=== PATIENT | female | born 1935 | race Caucasian/White ===

== ENCOUNTER → 2018-07-14 17:09 | Outpatient (REF) | payer MEDICARE, SELFPAY ==
[2018-07-14 17:39] LABS: Blood Urea Nitrogen 9 mg/dL (7-17); Carbon Dioxide 33 mmol/L (22-32); Chloride 87 mmol/L (98-107); Estimated Glomerular Filt Rate > 60.0 mL/min (>60); Glucose 102 mg/dL (80-110); HEMOLYSIS 46 (0-50); Potassium 4.8 mmol/L (3.4-5.1); Sodium 131 mmol/L (137-145)
== END ==
LOC: LAB 17:09
PROVIDERS: Family Provider Internal Medicine; PCP Internal Medicine; Visit Provider Student in an Organized Health Care Education/Training Program
DX: R60.9 Edema, unspecified (principal)
CPT/HCPCS: 80051; 82565; 82947; 84520

== ENCOUNTER → 2018-08-09 13:52 | Outpatient (CLI) | payer MEDICARE, SELFPAY ==
--- NOTE | 2018-08-09 | DI.ECHO.S_ITS ---
[facility] +---------+ : : [address] : : : : [id number] : : : : Phone: [phone]+ Echocardiogram Report + + :Name: LUDIVINA GELLER Study Date: 08/09/2018 Height: 63 in : :[facility] Exam Location: [facility] Weight: 111 lb : : Gender: Female BSA: 1.5 m2 : :: 1935 Age: 82 yrs BP: 125/80 mmHg: :Reason For Study: Congestive Heart Failure : :Ordering Physician: Estee : :Jero Performed By: Magda Page : :Referring: INES ALFONSO : + + Interpretation Summary The patient was in atrial fibrillation with heart rates between 80-108 bpm during the exam. The right ventricle is severely dilated. The right ventricular systolic pressure is estimated to be at least 67 mmHg based on an estimated right atrial pressure of 15 mm Hg. Flattened septum is consistent with RV volume overload. There is a small pericardial effusion. -Overall this echo shows severe pulmonary hypertension and right ventricular dilatation, resulting in septal shift and underfilling of the LV. There is a small circumferential pericardial effusion. -A small pericardial effusion is now visible (associated with worse prognosis in patients with pulmonary hypertension). Otherwise echocardiographic findings are similar to the prior echo. PA pressures could not be measured on prior echo but appears similar based on Doppler findings. Procedure: A two-dimensional transthoracic echocardiogram with color flow and Doppler was performed. The study quality was technically adequate. Comparison is made with the echocardiogram of 08/10/2017. The patient was in atrial fibrillation with heart rates between 80-108 bpm during the exam. Left Ventricle: The left ventricular cavity is small. Left ventricular wall thickness is borderline increased. The ejection fraction is estimated to be 70-75%. Paradoxical septal motion is consistent with right ventricular volume overload. Flattened septum is consistent with RV volume overload. Diastolic function could not be accurately assessed due to atrial fibrillation. Right Ventricle: The right ventricle is severely dilated. Right ventricular systolic function is borderline reduced. Atria: The left atrium is moderately dilated. The right atrium is severely dilated. There is no Doppler evidence for an interatrial shunt. Mitral Valve: The mitral valve leaflets appear mildly thickened, but open well. There is no mitral valve stenosis. There is trace mitral regurgitation. Aortic Valve: The aortic valve is not well visualized. Leaflet mobility is mildly reduced. There is no hemodynamically significant valvular aortic stenosis. No aortic regurgitation is present. Tricuspid Valve: Tricuspid leaflets are thickened. There is mild tricuspid regurgitation. The right ventricular systolic pressure is estimated to be at least 67 mmHg based on an estimated right atrial pressure of 15 mm Hg. Pulmonic Valve: The pulmonic valve is not well visualized. There is mild pulmonic regurgitation. Great Vessels: The aortic root is mildly dilated. The ascending aorta is mildly enlarged. The pulmonary is not well visualized. The IVC is dilated (diameter is greater than 2.1 cm) and it collapses less than 50% with a sniff. This suggests a high right atrial pressure of 15 mm Hg. Pericardium/ Pleura There is a small pericardial effusion that is circumferential. There are no echocardiographic or Doppler indications for cardiac tamponade. There is no pleural effusion. MMode/2D Measurements & Calculations LVIDd: 3.4 cm LVOT diam: 2.0 cm LVIDs: 2.5 cm Ao root diam: 4.0 cm FS: 28.5 % asc Aorta Diam: 3.7 cm EPSS: 0.43 cm IVSd: 1.1 cm LVPWd: 0.85 cm LV owens. diameter/BSA (cm/m^2): 2.3 LV sys. diameter/BSA (cm/m^2): 1.6 LA A2 area: 22.6 cm2 RA long axis: 6.8 cm LA A4 area: 18.5 cm2 RA area: 31.3 cm2 LA length (vol): 5.7 cm RA vol: 122.3 ml LA vol: 62.3 ml RA : 81.2 ml/m2 LA vol index: 41.4 ml/m2 IVC diam: 2.8 cm RVD1 (basal): 5.7 cm RVD2 (mid): 4.6 cm Doppler Measurements & Calculations Ao V2 max: 159.5 cm/sec LVOT Max Wolf: 93.1 cm/sec Ao V2 mean: 110.9 cm/sec LV V1 max P.5 mmHg Ao max P.2 mmHg LV V1 VTI: 15.1 cm Ao mean P.5 mmHg JASSI(I,D): 2.0 cm2 Ao V2 VTI: 23.7 cm JASSI(V,D): 1.8 cm2 sev ratio: 0.64 JASSI indexed to BSA (cm^2/m^2): 1.3 MV E max wolf: 111.4 cm/sec TR max wolf: 360.6 cm/sec MVA(VTI): 3.5 cm2 TR max P.1 mmHg PA V2 max: 82.8 cm/sec PA V2 mean: 51.4 cm/sec PA mean P.3 mmHg PA Accel Time: 0.04 sec MV V2 mean: 63.1 cm/sec MV mean P.0 mmHg MV V2 VTI: 13.2 cm Electronically signed by: Carl Han M.D. on Reading Physician:08/10/2018 08:17 PM
== END ==
PROVIDERS: Family Provider Internal Medicine; PCP Internal Medicine; Visit Provider Internal Medicine
DX: I07.1 Rheumatic tricuspid insufficiency (principal); I50.9 Heart failure, unspecified; I27.20 Pulmonary hypertension, unspecified
CPT/HCPCS: 93306